=== PATIENT | female | born 1990 | race Two or more races ===

== ENCOUNTER 2022-11-29 21:46 | Emergency (ER) | payer SELFPAY ==
[~2022-11-29] VITALS: Ht 165.1 cm; Wt 68.0 kg
--- NOTE | 2022-11-29 22:05 | NUR ---
CLAU AGUIRRE, COUSIN: [phone]
[2022-11-29] MEDS ORDERED: Thiamine 100 MG in IV D5W 50 ML IV STA (22:40)
[2022-11-29] MEDS ORDERED: Thiamine 100 MG/ML VIAL ONE (22:46)
[2022-11-29] MEDS ORDERED: PANTOPRAZOLE 40 MG VIAL ONE (22:46)
[2022-11-29] MEDS ORDERED: MAG HYDROX/AL HYDROX/SIMETH 30 ML UDC ONE (22:47)
[2022-11-29] MEDS ORDERED: LIDOCAINE VISCOUS 2% UD 15 ML UDC ONE (22:47)
[2022-11-29] MEDS ORDERED: ONDANSETRON HCL/PF 4 MG/2 ML VIAL ONE (22:47)
[2022-11-29] MEDS ORDERED: PANTOPRAZOLE 40 MG VIAL IV ONE (23:00)
[2022-11-29] MEDS ORDERED: ONDANSETRON HCL/PF 4 MG/2 ML VIAL IVP ONE (23:00)
[2022-11-29] MEDS ORDERED: IV NS 0.9% 1,000 ML BAG IV ONE (23:00)
[2022-11-29] MEDS ORDERED: MAG HYDROX/AL HYDROX/SIMETH 30 ML UDC PO ONE (23:00)
[2022-11-29] MEDS ORDERED: LIDOCAINE VISCOUS 2% UD 15 ML UDC MM ONE (23:00)
--- NOTE | 2022-11-29 23:07 | NUR ---
Gillian Shaw- mother
[2022-11-29 23:40] LABS: BASOPHILS % (AUTO) 0.2 % (0.0-2.0); EOSINOPHILS % (AUTO) 1.1 % (0.0-6.0); HEMATOCRIT 33 % (33-45); HEMOGLOBIN 10.9 g/dL (11.5-14.8); LYMPHOCYTES % (AUTO) 10.3 % (20.0-44.0); MEAN CORPUSCULAR HGB CONC 33 g/dl (31.0-36.0); MEAN CORPUSCULAR VOLUME 97 fL (82-100); MONOCYTES # (AUTO) 1.7 K/uL (0.1-1.30); MONOCYTES % (AUTO) 17.4 % (2.0-12.0); NEUTROPHILS # (AUTO) 6.8 K/uL (1.8-8.9); PLATELET COUNT (AUTO) 298 K/uL (150-450); RED BLOOD CELL COUNT(AUTO) 3.36 MIL/uL (4.0-5.2); WHITE BLOOD COUNT (AUTO) 9.5 K/uL (4.3-11.0)
[2022-11-30 01:34] LABS: ALBUMIN 2.8 g/dL (3.4-5.0)
[2022-11-30 01:39] LABS: CREATININE 0.7 mg/dL (0.6-1.3); POTASSIUM 3.2 mmol/L (3.5-5.1)
[2022-11-30 01:50] LABS: BILIRUBIN,DIRECT 1.1 mg/dL (0.0-0.2); BILIRUBIN,TOTAL 1.6 mg/dL (0.2-1.0)
[2022-11-30 01:55] LABS: BAND % (MANUAL) 4 % (0.0-5.0); BASOPHILS % (MANUAL) 0 % (0.0-2.0); EOSINOPHILS % (MANUAL) 1 % (0-4); LYMPHOCYTES % (MANUAL) 9 % (16-48); MONOCYTES % (MANUAL) 16 % (0-11.0); NEUTROPHILS % (MANUAL) 70 (42-76)
[2022-11-30] MEDS ORDERED: LORAZEPAM INJ 2 MG/ML VIAL ONE (02:41)
[2022-11-30] MEDS ORDERED: IV NS 0.9% 1,000 ML IV ONE (03:00)
[2022-11-30] MEDS ORDERED: LORAZEPAM INJ 2 MG/ML VIAL IV ONE (03:00)
[2022-11-30] MEDS ORDERED: THIA100T70 PO (04:11)
[2022-11-30] MEDS ORDERED: CHLO25CA22 PO (04:11)
--- NOTE | 2022-11-30 05:34 | NUR ---
CALLED JACY OLGUIN TO [employer] REIMBURSEMENT SPECIALIST THE PATIENT. SHE IS TRYING TO FIND THE GRACIA TO HER APARTMENT AND WILL PICKE HER UP.
--- NOTE | 2022-11-30 06:46 | NUR ---
Patient discharged to home in stable condition. Written and verbal after care instructions given. Patient verbalizes understanding of instruction. Patient is awake and alert to self, day, and place. IV removed. Catheter intact and site benign. Pressure and 4x4 applied to site. No bleeding noted.
[2022-11-30 06:47] VITALS: BP 141/78
== END 2022-11-30 06:48 | disposition home or self-care (01) ==
LOC: ER 21:48
DX: F10.139 Alcohol abuse with withdrawal, unspecified (principal); R11.2 Nausea with vomiting, unspecified; R51.9 Headache, unspecified; F41.9 Anxiety disorder, unspecified; F17.200 Nicotine dependence, unspecified, uncomplicated; Z60.2 Problems related to living alone; Y90.9 Presence of alcohol in blood, level not specified
CPT/HCPCS: 99285; 96365; 70450; 71045; 96375 ×2; 96368; 93005; 85025; 80048; 83690; 80076; 36415; 84484; 85730; 84702; 96361; 85007; J2405; J7060; J7030 ×2; J3411; C9113; J2060